=== PATIENT | female | born 1995 | race Asian ===

== ENCOUNTER 2016-09-12 06:46 | Outpatient (CLI) | payer OTHER ==
[~2016-09-12] VITALS: Ht 149.9 cm; Wt 68.0 kg
[2016-09-12 07:03] VITALS: BP 125/91
[2016-09-12] MEDS ORDERED: PRENTAB9 PO (07:10)
[2016-09-12 07:18] VITALS: BP 122/62
[2016-09-12 08:33] VITALS: BP 107/59
--- NOTE | 2016-09-12 09:47 | IPNPDOC ---
Text Note Date of Service The patient was seen on 09/12/16. NOTE Subjective: Sara is a 20yo with an SIUP at 40w0d who presents to triage for ctxs. She states she began feeling ctx around 0300 this morning and they have gotten closer together, about 7 min apart. course uncomplicated and PMHx noncontributory. ROS: Admits: Gross movement, good oral hydration. Denies: Vaginal bleeding, loss of fluid, fever, N/V Objective: first bp mild range then all normotensive NST: FHT 140 with moderate variability, pos accels, neg decels. Reactive NST. [place]: ctx q 10 minutes Physical Exam- General: WDWN gravid female in NAD Mental : AAOx3 HEENT: oral mucosa moist Abdominal: Soft NT/ND, no fundal tenderness Extremity: trace edema of BLE. (SCE chaperoned by HAMIDA Georges): Assessment: Sara is a 20yo with an SIUP at 40w0d without evidence of latent or active labor. Vitals wnl with benign physical exam. Reactive NST with ctx q10 min. SCE . course uncomplicated and PMHx noncontributory. Plan: -Discussed return precautions at length -f/u at next scheduled OB appt - kick counts prn -encouraged adequate hydration -medrec reviewed Dr. Lisa Valenzuela MD [facility] VS,Fishbone, I+O VS, Fishbone, I+O Vital Signs Date Time Temp Pulse Resp B/P Pulse Ox O2 Delivery O2 Flow Rate FiO2 09/12/16 08:33 86 18 107/59 09/12/16 07:03 99.0 LISA VALENZUELA MD Sep 12, 2016 09:47
[2016-09-12] MEDS ORDERED: ACET50TA PO (22:35)
[2016-09-12] MEDS ORDERED: BENA25TA9 PO (22:35)
== END 2016-09-12 09:30 | disposition home or self-care (01) ==
LOC: M LDO 06:46
PROVIDERS: ATTEND Advanced Practice Midwife
DX: O47.1 False labor at or after 37 completed weeks of gestation (principal); Z3A.40 40 weeks gestation of pregnancy; Z91.030 Bee allergy status

== ENCOUNTER 2016-09-12 17:12 | Outpatient (CLI) | payer OTHER ==
[~2016-09-12] VITALS: Ht 149.9 cm; Wt 68.0 kg
[~2016-09-12 17:12] MED LIST: PRENTAB9 PO
--- NOTE | 2016-09-12 19:29 | IPNPDOC ---
Text Note Date of Service The patient was seen on 09/12/16. NOTE Subjective: Sara is a 20yo with an SIUP at 40w0d who presents to triage for ctx. She was seen this morning and had SCE /-2 with irregular ctx and discharged home with return precautions. Her called the provider phone and stated her ctx were stronger and closer together, and I advised them to return after an hour of regular q3-5min ctx at home. course uncomplicated and PMHx noncontributory. ROS: Admits: Gross movement, good oral hydration. Denies: Vaginal bleeding, loss of fluid, fever, N/V Objective: Vitals wnl, afebrile NST: FHT 140 with moderate variability, pos accels, neg decels. Reactive NST. [place]: ctx q 4-8 min, irregular Physical Exam- General: WDWN gravid female in NAD Mental : AAOx3 HEENT: oral mucosa moist Abdominal: Soft NT/ND, no fundal tenderness Extremity: trace edema of BLE. (SCE performed by RN): /-2 Assessment: Sara is a 20yo with an SIUP at 40w0d without evidence of latent or active labor. Vitals wnl with benign physical exam. Reactive NST with ctx q4-8 min. SCE /-2, which is unchanged from her exam this morning. course uncomplicated and PMHx noncontributory. Plan: -Again discussed return precautions at length -f/u at next scheduled OB appt - kick counts prn -encouraged adequate hydration -medrec reviewed MD Vera Caballero KATRINA D. MD Sep 12, 2016 19:29
[2016-09-12] MEDS ORDERED: BENA25TA9 PO (22:35)
[2016-09-12] MEDS ORDERED: ACET50TA PO (22:35)
== END 2016-09-12 19:30 | disposition home or self-care (01) ==
LOC: M LDO 17:12
PROVIDERS: ATTEND Obstetrics & Gynecology

== ENCOUNTER 2016-09-12 22:27 | Inpatient (IN) | payer OTHER ==
[~2016-09-12] VITALS: Ht 152.4 cm; Wt 68.0 kg
[2016-09-12] MEDS: LR 1,000 ML IV SCH (00:41)
[2016-09-12] MEDS ORDERED: BENA25TA9 PO (22:35)
[2016-09-12] MEDS ORDERED: ACET50TA PO (22:35)
[2016-09-12 22:41] VITALS: BP 129/70
[2016-09-12] MEDS ORDERED: LACTATED RINGER'S 1000 ML IV STA (23:35)
--- NOTE | 2016-09-12 23:51 | HPEPDOC ---
Obstetrical History & Physical General Date of Admission Sep 12, 2016 at 23:36 History of Present Illness Sara is a 20yo with SIUP at 40w0d who presents for the third time today to L&D with complaint of ctx. She was seen this morning and earlier in the evening and found to have unchanged SCE of 2/75/-2 with very irregular ctx. On this presentation she has regular ctx q3-4min and now SCE 4/80/-2. No LOF, no vaginal bleeding, feels movement. 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 history Past Medical History Medical History benign Surgical History: Denies/None Family History Significant Family History: No pertinent family hx Social History Marital Status: Family situation: Spouse/partner home Psychosocial History: No pertinent psych hx * Smoker: non-smoker Alcohol: Denies Drugs: denies Imunizations Tdap status: current Influenza Status: current Allergies Coded Allergies: Bee Venom (Verified Allergy, Severe, 09/12/16) Medications Scheduled Multivitamins/ ( 27-0.8 mg) 1 Tab Tab 1 TAB PO DAILY Miscellaneous Medications Acetaminophen (Mapap) 500 Mg Tab 500 MG PO Diphenhydramine Hcl (Benadryl Allergy) 25 Mg Tab 25 MG PO Physical Examination Physical Examination GENERAL: Alert and oriented times three. BREAST: . ABDOMEN: Gravid and non-tender to touch. FETUS: Is vertex (VTX) by sterile vaginal examination (SVE) HEART RATE: Regular rate and rhythm. LUNGS: Clear to auscultation (CTA). EXTREMITIES: trace edema of BLE Vital Signs/I&O Vital Signs Date Time Temp Pulse Resp B/P Pulse Ox O2 Delivery O2 Flow Rate FiO2 09/12/16 22:41 99.0 86 22 129/70 Room Air Pertinent Laboratoy Data Blood Type: AB+ RBC Antibody Screen: Negative HIV: Negative Hepatitis B: Negative Hepatitis C: Unknown Rapid Plasma Reagin: Nonreactive Rubella: Immune Varicella: Nonreactive Chlamydia/Gonorrhea: Negative Group B Streptococcus: Negative Glucose Tolerance Test: 124 Anatomy Ultrasound Ultrasound Date: Apr 27, 2016 Placenta Location: Posterior Normal Anatomy: Yes Placenta Previa: No Steroid Therapy Steroid Therapy: No Vaginal Examination Dilation: 4 cm Effacement: 80+% Station: -2 Cervical Consistency: Soft Cervical Position: Anterior Presentation: Cephalic presentation Assessment Heart Rate (FHR): 140 Variability: Moderate Accelerations: Positive Decelerations: None Tocometer Contractions: Yes Frequency: regular, every 2-5 min. Duration: greater than 60 seconds Strength: palpated as moderate Assessment/Plan Assessment Sara is a 20yo with SIUP at 40w0d in active labor with ctx q3-4min and SCE 4/80/-2. Cat I FHRT. Cephalic by SCE. GBS negative. PMhx benign course uncomplicated Plan Admit and orient. Staff Writer and consent. Diet: clear liquids Labs and intravenous (IV) per unit protocol. Lactated Ringers (LR): Bolus 1000 mL, then at 125 mL/hr. Anticipate normal spontaneous delivery () Dr. Lisa Valenzuela MD LoganLISA Alves MD Sep 12, 2016 23:51
[2016-09-12 23:55] LABS: MEAN CORPUSCULAR HEMOGLOBIN 27.2 pg (27.0-33.0); MEAN CORPUSCULAR HGB CONC 32.3 g/dl (32.0-36.5); MEAN CORPUSCULAR VOLUME 84.2 fl (80.0-96.0); RED CELL DISTRIBUTION WIDTH 14.7 % (11.5-14.5); WHITE BLOOD COUNT 15.9 K/mm3 (4.0-10.0)
[2016-09-13] VITALS (22 sets, daily range): BP systolic 109–167; BP diastolic 57–111
[2016-09-13] MEDS ORDERED: FENTANYL 2MCG/ML ROPIVACAINE 0.2% NACL 250 ML CADD As Ordered ONE (00:06)
[2016-09-13] MEDS ORDERED: EPIDURAL/PCA KEYS XX PRN (01:15)
[2016-09-13] MEDS ORDERED: diphenhydrAMINE INJ 50MG/ML VIAL (J1200) IV PRN (01:15)
[2016-09-13] MEDS ORDERED: ePHEDrine SULFATE 25 MG/5 ML(5MG/ML) SYRINGE IV PRN (01:15)
[2016-09-13] MEDS ORDERED: NALOXONE INJ 0.4 MG/1 ML VIAL (J2310) IV PRN (01:15)
[2016-09-13] MEDS ORDERED: ONDANSETRON 4MG/2ML VIAL (J2405) IV PRN (01:15)
[2016-09-13] MEDS ORDERED: REFRIGERATOR IV KEYS XX PRN (01:15)
[2016-09-13] MEDS ORDERED: EPIDURAL COMMENT XX SCH (01:15)
[2016-09-13] MEDS ORDERED: FENTANYL/ROPIVACAINE/NACL CADD 250 ML EPIDURAL SCH (01:15)
--- NOTE | 2016-09-13 06:33 | IPNPDOC ---
Text Note Date of Service The patient was seen on 09/13/16. NOTE Intrapartum Progress Note Patient resting well with epidural. Has bloody show. SCE now 5/100/-1 with ctx q2-5min. AROM performed with very scant fluid in front of head, appears clear but difficult to fully assess due to bloody show and little fluid. Well tolerated. Cat I FHRT. Will augment with pitocin. Safe to proceed. Dr. Verenice Valenzuela MD [place] YULIA VS,Mira, I+O VS, Mira, I+O Laboratory Tests 09/12/16 23:47 Red Blood Count 4.28, Mean Corpuscular Volume 84.2, Mean Corpuscular Hemoglobin 27.2, Mean Corpuscular Hemoglobin Concent 32.3, Red Cell Distribution Width 14.7 H Vital Signs Date Time Temp Pulse Resp B/P Pulse Ox O2 Delivery O2 Flow Rate FiO2 09/12/16 22:41 99.0 86 22 129/70 Room Air I&O- Last 24 Hours up to 6 AM 09/13/16 06:00 Intake Total 1000 ml Output Total 100 ml Balance 900 ml VERENICE VALENZUELA MD Sep 13, 2016 06:33
[2016-09-13] MEDS: OXYTOCIN DRIP 30 UNITS in APPROPRIATE DILUENT 1 EA IV SCH ×2 (06:40→12:02)
--- NOTE | 2016-09-13 08:18 | IPNPDOC ---
Obstetrical Progress Note Date of Service The patient was seen on 09/13/16 at 08:12. Progress Note INTRAPARTUM PROGRESS NOTE [id number] @ 0810 20 yo G1 presented to L&D in active labor. Report from Dr. Valenzuela @ 5643. S: resting on her left side with epidural infusing. Reports she is not feeling her CTXs O: VS WNL, afebrile FHR- BL- 140, moderate variability, + accels, early decels CTX- Q 2-4 min, lasting < 90 sec, palpated as moderate in strength, resting tone palpated as soft SVE- deferred (last SVE @ 30 5/100/-1) AROM was done @ 0630; fluid remains clear PIT @ 6 mU/min A: 20 yo G1 @ 40+1 presented in Active Labor, now has pitocin infusing. CAT I FHR tracing. Cervical change unkn at this time. P: Continue to monitor and assess, continue to titrate pitocin per unit protocol. Reassess in 1-2 hours. VS, I&O, 24H, Fishbone Vital Signs/I&O Vital Signs Date Time Temp Pulse Resp B/P Pulse Ox O2 Delivery O2 Flow Rate FiO2 09/13/16 07:48 90 18 129/71 09/13/16 07:18 99.6 09/12/16 22:41 Room Air I&O- Last 24 Hours up to 6 AM 09/13/16 06:00 Intake Total 1000 ml Output Total 100 ml Balance 900 ml Laboratory Data 24H LABS Laboratory Tests 2 09/13/16 00:06: 09/13/16 03:11: Serology Scanned Report Hepatitis B Testing CBC/BMP Laboratory Tests 09/12/16 23:47 Red Blood Count 4.28, Mean Corpuscular Volume 84.2, Mean Corpuscular Hemoglobin 27.2, Mean Corpuscular Hemoglobin Concent 32.3, Red Cell Distribution Width 14.7 H BRIEN LUJAN CNM Sep 13, 2016 08:18
[2016-09-13] MEDS: LR 1,000 ML IV SCH (12:01)
[2016-09-13] MEDS ORDERED: OXYTOCIN DRIP 30 UNITS in APPROPRIATE DILUENT 1 EA IV SCH ×4 (12:59)
[2016-09-13] MEDS ORDERED: ANUSOL HC CREAM 30GM TOP PRN (13:00)
[2016-09-13] MEDS ORDERED: MOM 30ML SUSPENSION UDC PO PRN (13:00)
[2016-09-13] MEDS ORDERED: ACETAMINOPHEN 500 MG TAB PO PRN ×2 (13:00→13:30)
[2016-09-13] MEDS ORDERED: DIBUCAINE 1% OINTMENT 30GM TOP PRN (13:00)
[2016-09-13] MEDS ORDERED: PROMETHAZINE 25 MG TAB PO PRN (13:00)
--- NOTE | 2016-09-13 13:15 | DNPDOC ---
Delivery Note Delivery Note DATE OF DELIVERY: Sep 13, 2016 at 1106 PREDELIVERY DIAGNOSIS: 40+1/7 weeks' gestation and labor. POST DELIVERY DIAGNOSIS: Delivered. PROCEDURE: LADLE BUILDER: Bianka Gilman CNM ANESTHESIA: epidural ESTIMATED BLOOD LOSS: 500 mL. FINDINGS: 7 pound 11 ounce male , Score 9/9 DELIVERY SUMMARY: 20 yo G1 now P1001 @ 40+1 admitted to L&D in active labor; patient progressed to c/c/+2 with epidural infusing and a mild desire to push; delivery was via of a viable male infant to a clean field; the infant presented occiput posterior with no nuchal cord noted; Restitution to ROT, anterior shoulder(left) delivered with mild downward traction, then the posterior shoulder delivered with mild upward traction; remainder of corpus delivered spontaneously; infant placed on mother's abdomen. Bulb suction was performed and initial cleaning completed by RN, delayed cord clamping x 3 minutes, then cord clamped x 2 and cut by myself; the child had a vigorous cry and was moved to mother's chest for [id number]; pitocin was started with delivery of the anterior shoulder; 3 vessel cord and normal placenta were delivered without complications approx 5 minutes later; fundal massage was applied and vaginal vault was swept for clots; vagina and perineum examined; 4 MLL noted with extension up the right labia and posterior sulcus. Right labial laceration repair done by myself, Sulcus laceration repair started by myself. Dr. Bañuelos called to bedside to repair 4 MLL. Excellent hemostasis noted after repair. DYH=853 ml, had 9/9; mother and infant are bonding well and were stable in the delivery room. See Dr. Bañuelos's not for 4MLL repair note. Delivering Provider: RANDALL Orosco KELLI C. CNM Sep 13, 2016 13:14
[2016-09-13] MEDS ORDERED: ACETAMINOPHEN TAB 650MG DOSE (2X325MG) PO PRN (14:18)
[2016-09-13] MEDS: IBUPROFEN 800 MG TAB PO PRN (16:10)
[2016-09-13] MEDS: PERCOCET 5MG/325MG TAB PO PRN ×2 (19:56→23:58)
[2016-09-13] MEDS: DOCUSATE SODIUM 100 MG CAP PO SCH (19:57)
[2016-09-13] MEDS: MIRALAX *UNIT DOSE* 17GM PACKET PO SCH (20:47)
[2016-09-14] MEDS: IBUPROFEN 800 MG TAB PO PRN ×3 (02:46→21:19)
[2016-09-14] MEDS: PERCOCET 5MG/325MG TAB PO PRN ×2 (04:58→12:57)
[2016-09-14 05:39] VITALS: BP 135/82
[2016-09-14] MEDS: PRENATAL VITAMIN TAB PO SCH (07:37)
[2016-09-14] MEDS: MIRALAX *UNIT DOSE* 17GM PACKET PO SCH ×2 (07:37→20:36)
[2016-09-14 18:31] VITALS: BP 140/86
[2016-09-15 05:37] VITALS: BP 125/71
[2016-09-15] MEDS: DOCUSATE SODIUM 100 MG CAP PO SCH (06:23)
--- NOTE | 2016-09-15 07:09 | IPNPDOC ---
Text Note Date of Service The patient was seen on 09/15/16. NOTE PPD#2 s/p c/b 4th degree laceration S: Sara is a 20yo [id number] s/p at 40w1d only complicated by 4mll. She is doing very well today. Pain well controlled, lochia minimal, voiding spontaneously without problem, tolerating a regular diet, ambulating without difficulty. No f/c/n/v/RUSSO. Breast feeding. Having some diarrhea, possibly related to BID miralax with colace. O: normotensive, nml HR, afebrile H: RRR no m/g/r L: CTA b/l no w/c/r/r Abd: soft, non-tender and FF at U-1cm nontender Ext: no c/c/e Vaginal/rectal exam done with RN as bank officer: laceration repair is intact on palpation and visual inspection within the vagina and along the perineum, rectal exam also reveals intact repair with no button-holes, no abnormal discharge- appropriate lochia A/P: Sara is a 20yo [id number] s/p at 40w1d only complicated by 4mll. Hemodynamically stable, afebrile, good pain control. -Discharge to home today -Explained to continue low residue diet at home -bowel regimen with colace and miralax, encouraged patient to self titrate miralax dose to desired stool consistency (ok to take half a capful rather than whole capful) -follow up in clinic in 2 weeks to evaluate laceration healing -Social work consult to discuss appropriate boundaries with in-laws Note: I specifically asked Sara if she is ok with having her in-laws in her room with her at all times. Her father in-law has been present in her room since admission, even to the extent of staying the night with his in chairs while her slept on the cot. She stated she was mostly ok with it , though she might like more space. I encouraged her to vocalize this to her in- laws. I also very specifically instructed her to wait a full 12 weeks for intercourse. I explained that her 4mll is susceptible to wound breakdown which would require repair in the OR at a later time if she were to resume intercourse too soon. I worry that she may not speak up for herself enough with her 's family which may translate to not speaking up for herself to decline intercourse for the 8 necessary weeks. I was very clear on the importance of vaginal rest. She acknowledged her understanding of my recommendations. I told her to call the clinic and schedule a laceration repair check in 2 weeks to ensure it is healing well. We will then see her for a 6wk routine PP visit as well. Dr. Lisa Valenzuela MD [place] YULIA VS,Mira, I+O VSMira, I+O Vital Signs Date Time Temp Pulse Resp B/P Pulse Ox O2 Delivery O2 Flow Rate FiO2 09/15/16 05:37 98.9 75 16 125/71 09/13/16 20:30 Room Air LISA VALENZUELA MD Sep 15, 2016 07:09
[2016-09-15] MEDS: PERCOCET 5MG/325MG TAB PO PRN ×2 (08:14→12:28)
[2016-09-15] MEDS: MIRALAX *UNIT DOSE* 17GM PACKET PO SCH (08:15)
[2016-09-15] MEDS: PRENATAL VITAMIN TAB PO SCH (08:15)
[2016-09-15] MEDS: IBUPROFEN 800 MG TAB PO PRN (10:56)
[2016-09-15] MEDS ORDERED: ACET50TA PO (13:26)
[2016-09-15] MEDS ORDERED: COLA100C PO (13:26)
[2016-09-15] MEDS ORDERED: MIRA3350 PO (13:26)
[2016-09-15] MEDS ORDERED: PRENTAB9 PO (13:26)
[2016-09-15] MEDS ORDERED: DIBU1OI TOP (13:26)
[2016-09-15] MEDS ORDERED: ADVI200C5 PO (13:26)
--- NOTE | 2016-09-15 18:22 | IPN ---
DATE: 09/12/2016 This patient and her requested circumcision of their male . After discussing the risks and benefits of circumcision, the medical and nonmedical indications, the penile block and aftercare, they expressed understanding of the procedure and aftercare and signed and witnessed the consent form. We await the clearance by the paper cone grader.
== END 2016-09-15 14:05 | disposition home or self-care (01) | DRG 775 ==
LOC: M LDO 22:27 → M LDI 23:36 → M OBS 09-13 14:48
PROVIDERS: ADMIT Obstetrics & Gynecology; ATTEND Obstetrics & Gynecology
PROC: 10E0XZZ Delivery of Products of Conception, External Approach (ICD-10-PCS; principal; 2016-09-13)
PROC: 0DQP0ZZ Repair Rectum, Open Approach (ICD-10-PCS; 2016-09-13)
PROC: 0HQ9XZZ Repair Perineum Skin, External Approach (ICD-10-PCS; 2016-09-13)
DX: O48.0 Post-term pregnancy (principal); O70.3 Fourth degree perineal laceration during delivery; Z37.0 Single live birth; Z3A.40 40 weeks gestation of pregnancy; O70.0 First degree perineal laceration during delivery